=== PATIENT | female | born 1985 | race Caucasian/White ===

== ENCOUNTER 2016-06-16 18:35 | Emergency (ER) | payer MEDICAID ==
[~2016-06-16] VITALS: Ht 165.1 cm; Wt 84.9 kg
[2016-06-16] MEDS ORDERED: SODIUM CHLORIDE FLUSH 10ML SYR IVF ONE (19:00)
[2016-06-16] MEDS ORDERED: SODIUM CHLORIDE 0.9% 1,000ML IVBOLUS ONE (19:00)
[2016-06-16] MEDS ORDERED: MORPHINE SULFATE 4 MG/ML, 1ML IVPush PRN (19:00)
[2016-06-16] MEDS ORDERED: ONDANSETRON 2MG/ML, 2ML IVPush ONE (19:00)
[2016-06-16] MEDS ORDERED: PRENATAL (19:09)
[2016-06-16 19:11] VITALS: BP 113/80
[2016-06-16] MEDS ORDERED: ONDANSETRON 2MG/ML, 2ML ONE (19:44)
[2016-06-16] MEDS ORDERED: MORPHINE SULFATE 4 MG/ML, 1ML ONE (19:44)
[2016-06-16 20:01] LABS: BLOOD UREA NITROGEN 11 mg/dL (7-18)
== END 2016-06-16 21:26 | disposition home or self-care (01) ==
LOC: ED 21:20
DX: N93.8 Other specified abnormal uterine and vaginal bleeding (principal)
CPT/HCPCS: 36415; 76830; 80048; 82040; 85025; 96361; 96374; 96375; 99285; J2405; J7030

== ENCOUNTER 2016-09-15 08:54 | Emergency (ER) | payer MEDICAID ==
[~2016-09-15] VITALS: Ht 162.6 cm; Wt 76.1 kg
[~2016-09-15 08:54] MED LIST: PRENATAL
[2016-09-15 10:06] LABS: BLOOD UREA NITROGEN 8 mg/dL (7-18)
[2016-09-15] MEDS ORDERED: HYDROcodone/APAP 5/325 TABLET ONE (10:49)
[2016-09-15 10:52] VITALS: BP 106/70
[2016-09-15] MEDS ORDERED: HYDROcodone/APAP 5/325 TABLET PO ONE (11:00)
== END 2016-09-15 11:52 | disposition home or self-care (01) ==
LOC: ED 09:26
DX: N92.4 Excessive bleeding in the premenopausal period (principal); N83.201 Unspecified ovarian cyst, right side; Z88.0 Allergy status to penicillin; Z91.013 Allergy to seafood
CPT/HCPCS: 36415; 76830; 80048; 82040; 84703; 85025; 85610; 85730; 99285

== ENCOUNTER 2016-09-28 21:03 | Emergency (ER) | payer MEDICAID, OTHER ==
[~2016-09-28] VITALS: Ht 162.6 cm; Wt 76.8 kg
[2016-09-28] MEDS ORDERED: SODIUM CHLORIDE FLUSH 10ML SYR IVF ONE (21:30)
[2016-09-28] MEDS ORDERED: ONDANSETRON 2MG/ML, 2ML IVPush ONE (21:30)
[2016-09-28] MEDS ORDERED: SODIUM CHLORIDE 0.9% 1,000ML IVBOLUS ONE (21:30)
[2016-09-28] MEDS ORDERED: ONDANSETRON 2MG/ML, 2ML ONE (21:32)
[2016-09-28] MEDS ORDERED: MORPHINE SULFATE 4 MG/ML, 1ML ONE ×2 (21:32→23:03)
[2016-09-28 21:51] LABS: HEMATOCRIT 41.8 % (34.6-47.8); HEMOGLOBIN 13.7 g/dL (11.7-16.4); WHITE BLOOD COUNT 6.4 x10^3/uL (3.4-10)
[2016-09-28] MEDS: MORPHINE SULFATE 4 MG/ML, 1ML IVPush PRN ×2 (21:53→23:05)
[2016-09-28 21:57] LABS: BLOOD UREA NITROGEN 7 mg/dL (7-18)
[2016-09-29 00:41] VITALS: BP 105/74
== END 2016-09-29 01:18 | disposition home or self-care (01) ==
LOC: ED 23:34
DX: N83.202 Unspecified ovarian cyst, left side (principal); N83.201 Unspecified ovarian cyst, right side; R10.2 Pelvic and perineal pain; Z88.0 Allergy status to penicillin
CPT/HCPCS: 36415; 76830; 80048; 81003; 82040; 84703; 85025; 96361; 96374; 96375; 96376; 99285; J2405; J7030